=== PATIENT | male | born 1950 | race Hispanic/Latino ===

== ENCOUNTER 2019-10-02 21:24 | Observation (INO) | payer OTHER ==
[~2019-10-02] VITALS: Ht 175.3 cm; Wt 101.6 kg
[2019-10-02] MEDS ORDERED: ASPIRIN 81MG TAB.CHEW ONE (21:41)
[2019-10-02 22:05] LABS: BASOPHILS % (AUTO) 0.6 % (0.0-5.0); EOSINOPHILS % (AUTO) 3.1 % (0.0-8.0); HEMATOCRIT 41.9 % (42-54); LYMPHOCYTES % (AUTO) 20.9 % (21.0-51.0); MEAN CORPUSCULAR HEMOGLOBIN 29.1 pg (27.0-33.0); MEAN CORPUSCULAR HGB CONC 34.8 g/dL (32.0-36.0); MEAN CORPUSCULAR VOLUME 83.5 fL (79-99); MONOCYTES % (AUTO) 12.4 % (3.0-13.0); NEUTROPHILS % (AUTO) 62.8 % (40.0-77.0); PLATELET COUNT (AUTO) 208 K/uL (130-400); RED BLOOD CELL COUNT(AUTO) 5.02 MIL/uL (4.50-6.20); RED CELL DISTRIBUTION WIDTH 13.1 % (11.0-15.5)
[2019-10-02 22:21] LABS: CREATININE 1.6 mg/dL (0.5-1.5)
[2019-10-02 22:25] LABS: ALBUMIN 4.1 g/dL (3.5-5.0); BILIRUBIN,TOTAL 0.5 mg/dL (0.2-1.0); MAGNESIUM 2.1 mg/dL (1.80-2.40); TOTAL PROTEIN, SERUM 7.8 g/dL (6.0-8.3)
[2019-10-02 22:37] LABS: B-TYPE NATRIURETIC PEPTIDE 11 pg/mL (0-100)
[2019-10-03] MEDS ORDERED: IPRATROPIUM/ALBUTEROL SULFATE 3 ML SOLUTION IH ONE ×3 (01:47→13:41)
[2019-10-03] MEDS ORDERED: NITROGLYCERIN 1GM/1 INCH PACKET TD ONE ×2 (03:14→08:10)
[2019-10-03] MEDS: NITROGLYCERIN 1GM/1 INCH PACKET TD SCH ×3 (06:45→18:54)
[2019-10-03] MEDS: IPRATROPIUM/ALBUTEROL SULFATE 3 ML SOLUTION IH SCH ×5 (06:49→21:41)
[2019-10-03] MEDS ORDERED: ENOXAPARIN SODIUM 30 MG/0.3 ML SQ ONE (08:10)
[2019-10-03] MEDS ORDERED: ASPIRIN 325 MG TABLET ONE (08:10)
[2019-10-03] MEDS: ENOXAPARIN SODIUM 30 MG/0.3 ML SQ SCH (09:00)
[2019-10-03] MEDS: ASPIRIN 325 MG TABLET PO SCH (09:00)
--- NOTE | 2019-10-03 10:18 | NUR ---
INITIAL SW met with patient . Patient lives with spouse, Anne-Marie Calero, [phone]. Patient has no home services. DME: glucometer (no insulin). Patient is able to complete ADL's independently and drives. PCP is Dr. Keke Laguerre. Pharmacy is [facility]. DCP is home. Addendum: 10/03/19 at 1020 by [place] RIVERS SS Amended: Links added.
[2019-10-03] MEDS ORDERED: ACETAMINOPHEN-CODEINE 300/30MG TAB PO PRN ×2 (12:00)
[2019-10-03] MEDS ORDERED: HYDRALAZINE HCL 20 MG/ML VIAL IV PRN (12:00)
[2019-10-03] MEDS ORDERED: LACTULOSE 20 GM/30 ML UDCUP PO PRN (12:00)
[2019-10-03] MEDS ORDERED: ONDANSETRON HCL 4 MG/2 ML VIAL IVP PRN (12:00)
[2019-10-03] MEDS ORDERED: MAGNESIUM 2GM PREMIX 50ML 50 ML IV PRN (12:00)
[2019-10-03] MEDS ORDERED: GLUCAGON 1MG KIT 1 MG ML IM PRN (12:00)
[2019-10-03] MEDS ORDERED: POTASSIUM CHLORIDE 10% ELIXIR 20 MEQ/15 ML UDCUP PO PRN (12:00)
[2019-10-03] MEDS ORDERED: POTASSIUM CHLORIDE 20MEQ/100ML 100 ML IV PRN (12:00)
[2019-10-03] MEDS ORDERED: POTASSIUM CHLORIDE 20 MEQ ERTAB PO PRN (12:00)
[2019-10-03] MEDS ORDERED: ACETAMINOPHEN 325 MG TAB PO PRN ×2 (12:00)
[2019-10-03] MEDS ORDERED: DEXTROSE 50%-WATER 50 ML DISP.SYRIN IV PRN (12:00)
[2019-10-03] MEDS ORDERED: LIDOCAINE HCL-MPF 1% 2ML VIAL IV PRN (12:00)
[2019-10-03 14:55] VITALS: BP 141/70
[2019-10-03] MEDS: INSULIN HUMULIN R 100 UNIT/ML 3ML SQ SCH ×2 (16:30→21:00)
[2019-10-03] MEDS ORDERED: SIMV-43 PO (16:46)
[2019-10-03] MEDS ORDERED: METF-446 PO (16:48)
[2019-10-03] MEDS ORDERED: GLIP5TAB11 PO (16:48)
[2019-10-03] MEDS ORDERED: LISI1TAB29 PO (16:48)
[2019-10-03] MEDS ORDERED: PNEUMOCOCCAL VACCINE POLYVALENT 0.5 ML/VIAL [PPV] IM SCH (17:00)
[2019-10-03 19:00] VITALS: BP 143/93
[2019-10-04] VITALS: BP 126/76
[2019-10-04] MEDS: IPRATROPIUM/ALBUTEROL SULFATE 3 ML SOLUTION IH SCH ×4 (01:24→14:04)
[2019-10-04] MEDS: NITROGLYCERIN 1GM/1 INCH PACKET TD SCH ×3 (01:44→13:48)
[2019-10-04 04:00] VITALS: BP 134/79
[2019-10-04 04:47] LABS: HEMATOCRIT 38.6 % (42-54); MEAN CORPUSCULAR HEMOGLOBIN 29.5 pg (27.0-33.0); MEAN CORPUSCULAR HGB CONC 34.5 g/dL (32.0-36.0); MEAN CORPUSCULAR VOLUME 85.6 fL (79-99); PLATELET COUNT (AUTO) 197 K/uL (130-400); RED BLOOD CELL COUNT(AUTO) 4.51 MIL/uL (4.50-6.20); RED CELL DISTRIBUTION WIDTH 13.3 % (11.0-15.5); WHITE BLOOD COUNT (AUTO) 9.1 K/uL (4.8-10.8)
[2019-10-04 04:56] LABS: CREATININE 1.7 mg/dL (0.5-1.5); MAGNESIUM 1.8 mg/dL (1.80-2.40); PHOSPHORUS 5.4 mg/dL (2.5-4.9); POTASSIUM 3.6 mmol/L (3.5-5.1)
[2019-10-04] MEDS: INSULIN HUMULIN R 100 UNIT/ML 3ML SQ SCH ×3 (06:46→16:30)
[2019-10-04 08:00] VITALS: BP 140/74
[2019-10-04] MEDS ORDERED: PREDNISONE 10 MG TABLET PO SCH (09:00)
[2019-10-04] MEDS ORDERED: PANTOPRAZOLE SODIUM 40 MG TABLET.DR PO SCH (09:00)
[2019-10-04] MEDS: ASPIRIN 325 MG TABLET PO SCH (09:40)
[2019-10-04] MEDS: ENOXAPARIN SODIUM 30 MG/0.3 ML SQ SCH (09:41)
[2019-10-04 11:54] VITALS: BP 134/63
[2019-10-04] MEDS ORDERED: PRED20TA3 PO (15:41)
[2019-10-04 16:00] VITALS: BP 124/75
== END 2019-10-04 17:55 | disposition home or self-care (01) ==
LOC: EDH 21:24 → EDHIP 23:04 → 4DH 10-03 14:42
PROVIDERS: ADMIT Internal Medicine Critical Care Medicine; ATTEND Internal Medicine Critical Care Medicine
DX: R06.02 Shortness of breath (principal); I13.10 Hypertensive heart and chronic kidney disease without heart failure, with stage 1 through stage 4 chronic kidney disease, or unspecified chronic kidney disease; E11.22 Type 2 diabetes mellitus with diabetic chronic kidney disease; N18.3 Chronic kidney disease, stage 3 (moderate); N17.9 Acute kidney failure, unspecified; E78.00 Pure hypercholesterolemia, unspecified; E78.5 Hyperlipidemia, unspecified; Z87.891 Personal history of nicotine dependence; Z79.84 Long term (current) use of oral hypoglycemic drugs; Z79.899 Other long term (current) drug therapy
CPT/HCPCS: 36415 ×2; 71045; 71250; 78580; 80048; 80053; 82948 ×7; 83690; 83735 ×2; 83880; 84100; 84484 ×3; 85025; 85027; 93005 ×3; 93306; 93970; 94010; 94640 ×10; 94664; 96372; 99285; A9540; G0378 ×41; J1650 ×2; J1815; J7512

== ENCOUNTER → 2019-11-15 | Outpatient (CLI) | payer OTHER ==
[~2019-11-15] MED LIST: GLIP5TAB11 PO; LISI1TAB29 PO; METF-446 PO; PRED20TA3 PO; SIMV-43 PO
== END | disposition home or self-care (01) ==
LOC: RAH 07:53
PROVIDERS: ATTEND Internal Medicine Cardiovascular Disease
DX: Z13.6 Encounter for screening for cardiovascular disorders (principal)
CPT/HCPCS: 75571

== ENCOUNTER → 2019-12-10 | Outpatient (CLI) | payer OTHER ==
[~2019-12-10] MED LIST changes: +REGADENOSON 0.4 MG/5 ML PF SYG IVP SCH
== END | disposition home or self-care (01) ==
LOC: SHCH 08:52
PROVIDERS: ATTEND Internal Medicine Cardiovascular Disease
DX: I10 Essential (primary) hypertension (principal); R06.02 Shortness of breath
CPT/HCPCS: 78452; 93017; A9500 ×2; J2785; 96374

== ENCOUNTER → 2022-04-05 | Outpatient (CLI) | payer OTHER ==
[~2022-04-05] MED LIST changes: -LISI1TAB29 PO; +LISI1TAB53 PO; -REGADENOSON 0.4 MG/5 ML PF SYG IVP SCH
== END | disposition home or self-care (01) ==
LOC: SHCH 13:00
PROVIDERS: ATTEND Internal Medicine Cardiovascular Disease
DX: I11.9 Hypertensive heart disease without heart failure (principal); E11.9 Type 2 diabetes mellitus without complications; E78.5 Hyperlipidemia, unspecified
CPT/HCPCS: 93306

== ENCOUNTER 2022-07-03 12:00 | Emergency (ER) | payer OTHER ==
[~2022-07-03] VITALS: Ht 175.3 cm; Wt 98.4 kg
[2022-07-03 12:35] LABS: BASOPHILS % (AUTO) 0.4 % (0.0-5.0); EOSINOPHILS % (AUTO) 1.7 % (0.0-8.0); HEMATOCRIT 39.1 % (42-54); LYMPHOCYTES % (AUTO) 15.5 % (21.0-51.0); MEAN CORPUSCULAR HEMOGLOBIN 30.3 pg (27.0-33.0); MEAN CORPUSCULAR HGB CONC 34.8 g/dL (32.0-36.0); MEAN CORPUSCULAR VOLUME 87.1 fL (79-99); MONOCYTES % (AUTO) 8.5 % (3.0-13.0); NEUTROPHILS % (AUTO) 73.6 % (40.0-77.0); PLATELET COUNT (AUTO) 221 K/uL (130-400); RED BLOOD CELL COUNT(AUTO) 4.49 MIL/uL (4.50-6.20); RED CELL DISTRIBUTION WIDTH 12.9 % (11.0-15.5); WHITE BLOOD COUNT (AUTO) 7.9 K/uL (4.8-10.8)
[2022-07-03 12:44] LABS: CREATININE 1.6 mg/dL (0.5-1.5); POTASSIUM 3.7 mmol/L (3.5-5.1)
[2022-07-03 12:51] LABS: ALBUMIN 3.7 g/dL (3.5-5.0); TOTAL PROTEIN, SERUM 7.2 g/dL (6.0-8.3)
[2022-07-03 13:03] LABS: B-TYPE NATRIURETIC PEPTIDE 9 pg/mL (0-100)
[2022-07-03] MEDS ORDERED: ALBUTEROL INHALER 90MCG/INH IH ONE (14:00)
[2022-07-03] MEDS ORDERED: ALBU6.7H14 IH (14:01)
[2022-07-03 14:05] VITALS: BP 122/76
== END 2022-07-03 14:21 | disposition home or self-care (01) ==
LOC: EDH 12:00
DX: R06.00 Dyspnea, unspecified (principal); N28.9 Disorder of kidney and ureter, unspecified; E11.9 Type 2 diabetes mellitus without complications; E66.9 Obesity, unspecified; Z68.32 Body mass index [BMI] 32.0-32.9, adult; Z20.822 Contact with and (suspected) exposure to COVID-19; I10 Essential (primary) hypertension; Z79.899 Other long term (current) drug therapy; Z79.84 Long term (current) use of oral hypoglycemic drugs
CPT/HCPCS: 99285; 71045; 87635; 84484; 80053; 83880; 85025; 87804 ×2; 36415; 93005; C9803

== ENCOUNTER → 2022-10-25 | Outpatient (CLI) | payer OTHER ==
[~2022-10-25] MED LIST changes: +ALBU6.7H14 IH
[2022-10-25 16:32] LABS: CREATININE 1.5 mg/dL (0.5-1.5); MAGNESIUM 1.6 mg/dL (1.80-2.40); POTASSIUM 4.2 mmol/L (3.5-5.1)
== END | disposition home or self-care (01) ==
LOC: LAB 12:56
PROVIDERS: ATTEND Internal Medicine Cardiovascular Disease
DX: I10 Essential (primary) hypertension (principal); E78.5 Hyperlipidemia, unspecified
CPT/HCPCS: 36415; 80048; 83735

== ENCOUNTER → 2024-01-23 | Outpatient (CLI) | payer OTHER ==
[~2024-01-23] MED LIST changes: -GLIP5TAB11 PO; +GLIP5TAB15 PO
[2024-01-23 12:35] LABS: CREATININE 1.8 mg/dL (0.5-1.3); POTASSIUM 4.5 mmol/L (3.5-5.1)
== END | disposition home or self-care (01) ==
LOC: LAB 09:24
PROVIDERS: ATTEND Internal Medicine Cardiovascular Disease
DX: I10 Essential (primary) hypertension (principal); E78.5 Hyperlipidemia, unspecified
CPT/HCPCS: 36415; 80048

== ENCOUNTER → 2024-03-12 | Outpatient (CLI) | payer OTHER ==
[2024-03-12 16:29] LABS: CREATININE 1.7 mg/dL (0.5-1.3); POTASSIUM 4.4 mmol/L (3.5-5.1)
== END | disposition home or self-care (01) ==
LOC: LAB 14:59
PROVIDERS: ATTEND Internal Medicine Cardiovascular Disease
DX: I10 Essential (primary) hypertension (principal)
CPT/HCPCS: 36415; 80048

== ENCOUNTER → 2024-03-14 | Outpatient (CLI) | payer OTHER ==
[~2024-03-14] MED LIST changes: +METOPROLOL TARTRATE 1 MG/ML 5ML VIAL IV ONE
== END | disposition home or self-care (01) ==
LOC: SHCH 08:18
PROVIDERS: ATTEND Internal Medicine Cardiovascular Disease
DX: I25.10 Atherosclerotic heart disease of native coronary artery without angina pectoris (principal); M47.815 Spondylosis without myelopathy or radiculopathy, thoracolumbar region
CPT/HCPCS: 93306; 75574; J3490

== ENCOUNTER → 2024-10-29 | Outpatient (CLI) | payer OTHER ==
[~2024-10-29] MED LIST changes: -METOPROLOL TARTRATE 1 MG/ML 5ML VIAL IV ONE
--- NOTE | 2024-10-30 09:35 | HMCSR ---
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 (R) 58.7cm/sec, Biphasic, Prof Fem Art. (L) 67.7cm/sec, Biphasic, Fem Art Prox. (R) 104.2cm/sec, Biphasic, Fem Art Prox. (L) 113.5cm/sec, Biphasic, Fem Art Mid. (R) 128.4cm/sec, Biphasic, Fem Art Mid. (L) 110.0cm/sec, Biphasic, Fem Art Dist (R) 69.3cm/sec, Biphasic, Fem Art Dist. (L) 92.6cm/sec, Biphasic, Pop Art(AK) (R) 54.6cm/sec, Biphasic, Pop Art (AK) (L) 46.5cm/sec, Biphasic, Pop Art (Fossa)(R) 69.3cm/sec, Biphasic, Pop Art (Fossa) (L) 66.1cm/sec, Biphasic, Pop Art(BK) (R) 57.1cm/sec, Biphasic, Pop Art (BK) (L) 48.0cm/sec, Biphasic, WHEEL PRESSER Prox. (R) cm/sec, WHEEL PRESSER Prox. (L) cm/sec, WHEEL PRESSER Mid. (R) cm/sec, WHEEL PRESSER Mid. (L) cm/sec, WHEEL PRESSER Dist. (R) 131.1cm/sec, Biphasic, WHEEL PRESSER Dist. (L) 15.7cm/sec, Monophasic, Per Art Dist. (R) 11.4cm/sec, Monophasic, Per Art Dist. (L) 17.9cm/sec, Monophasic, AMINA Dist. (R) 18.8cm/sec, Monophasic, AMINA Dist. (L) 71.8cm/sec, Biphasic, Technologist Impression Diffuse atherosclerosis throughout the bilateral lower extremities. Monophasic waveforms seen in the RT. MIGUEL A. & RT. AMINA. Monophasic waveforms seen in the LT. WHEEL PRESSER & LT. MIGUEL A. Conclusion Diffuse atherosclerosis throughout the bilateral lower extremities. Monophasic waveforms seen in the RT. MIGUEL A. & RT. AMINA. Monophasic waveforms seen in the LT. WHEEL PRESSER & LT. MIGUEL A. Conclusion Diffuse atherosclerosis throughout the bilateral lower extremities. Monophasic waveforms seen in the RT. MIGUEL A. & RT. AMINA. Monophasic waveforms seen in the LT. WHEEL PRESSER & LT. MIGUEL A.
== END | disposition home or self-care (01) ==
LOC: SHCH 08:32
PROVIDERS: ATTEND Internal Medicine Cardiovascular Disease
DX: I70.203 Unspecified atherosclerosis of native arteries of extremities, bilateral legs (principal)
CPT/HCPCS: 93925

== ENCOUNTER → 2024-11-19 | Outpatient (CLI) | payer OTHER ==
[2024-11-19 12:31] LABS: CREATININE 1.3 mg/dL (0.5-1.3); POTASSIUM 4.1 mmol/L (3.5-5.1)
== END | disposition home or self-care (01) ==
LOC: LAB 09:14
PROVIDERS: ATTEND Nurse Practitioner Acute Care
DX: I10 Essential (primary) hypertension (principal); I25.10 Atherosclerotic heart disease of native coronary artery without angina pectoris; I73.9 Peripheral vascular disease, unspecified
CPT/HCPCS: 36415; 80048